=== PATIENT | female | born 1965 | race Caucasian/White ===

== ENCOUNTER → 2017-05-06 | Outpatient (CLI) | payer BC ==
[~2017-05-06] MED LIST: CLARITIN 1010 MG/TAB PO; FERROUS SULFATE65 MG PO; FISH OIL 1000MG1 CAP PO; GLUCOPHAGE500 MG/TAB PO; IRON325 MG PO; LEVOXYL0.137 MG PO; MULTI VITAMINS1 TAB PO; NATURAL MAGNES200 MG PO; PROZAC 20MG20 MG PO; VITAMIN C500 MG PO; VITAMIN D 400400 IU PO; [UNRECOGNIZED DRUG - OTHER] PO
== END ==
LOC: MC.RAD 06:58
DX: Z12.31 Encounter for screening mammogram for malignant neoplasm of breast (principal)

== ENCOUNTER → 2018-06-01 | Outpatient (CLI) | payer BC | LOC: MC.RAD 13:36 | DX: Z12.31 Encounter for screening mammogram for malignant neoplasm of breast (principal) ==

== ENCOUNTER → 2020-06-05 | Outpatient (CLI) | payer BC | LOC: MC.RAD 07:00 | DX: Z12.31 Encounter for screening mammogram for malignant neoplasm of breast (principal) ==